=== PATIENT | male | born 1990 | race Caucasian/White ===

== ENCOUNTER → 2019-11-16 09:45 | Outpatient (CLI) | payer OTHER, SELFPAY ==
--- NOTE | ~2019-11-16 | MR_ITS ---
EXAMINATION: MR knee LT wo con DATE: 11/16/2019 10:30 INDICATION: Medial left knee pain TECHNIQUE: Magnetic resonance imaging (MRI) of the left knee was performed without intravenous contra st. Sequences included coronal PD-weighted FSE, coronal PD-weighted FS FSE, sagittal T2-weighted FSE , sagittal PD-weighted FS FSE and axial PD weighted fat saturated FSE. COMPARISON: None. FINDINGS: Medial compartment: Medial meniscus is normal. Articular cartilage is normal. Lateral compartment: Lateral meniscus is normal. Articular cartilage is normal. Patellofemoral compartment: Small focus of chondral fissuring with subtle underlying cortical irregularity at the junction of the inferior aspect of the medial trochlea and the anteriormost articular surface of the medial femoral condyle. Remaining cartilage in the patellofemoral compartment is normal. Ligaments and tendons: Anterior and posterior cruciate ligaments are normal. The medial collateral ligament and fibular hamilton ateral ligament complex are normal. The extensor mechanism is normal. The visualized medial and later al hamstring tendons as well as the iliotibial band are normal. Fluid: Physiologic amount of fluid in the joint space. No loose osteochondral bodies identified. Osseous/other: Normal marrow signal. No fracture or pathologic marrow replacing process. IMPRESSION: 1. Small focus of high-grade patellofemoral chondromalacia at the inferior aspect of the medial troch canelo. Reviewed, dictated and finalized at location A. IMPRESSION: 1. Small focus of high-grade patellofemoral chondromalacia at the inferior aspe ct of the medial trochlea.
== END ==
PROVIDERS: PCP Family Medicine; Visit Provider Internal Medicine
DX: M25.562 Pain in left knee (principal); M94.262 Chondromalacia, left knee
CPT/HCPCS: 73721

== ENCOUNTER 2023-09-11 08:57 | Outpatient (CLI) | payer OTHER, SELFPAY ==
--- NOTE | 2023-09-30 15:47 | WPDHOMESLEEP ---
Sleep Study - Home Unattended Date of Study: 09/11/23 Ordering Provider: Bari Zelaya MD Interpreting Provider: Georgia Bacon, DO Home Sleep Study Type: Watch PAT Height: 1.75 m Weight: 94.801 kg Body Mass Index: 30.8 Neck Circumference (inches): 16 [place]: 8 Reason for Sleep Study Snoring, unrefreshing sleep Sleep History The patient is a 32-year-old male with seasonal allergies that had a sleep study ordered by his primary care physician for evaluation of sleep apnea. The patient denies awakening from sleep short of breath. He rarely awakens at night with heartburn, belching or cough. He frequently snores and is frequently loud enough that others complain. He occasionally has trouble sleeping when he has a cold. He denies waking up gasping for air throughout the night. He denies having breathing problems at night observed by himself or others. He denies sweating excessively at night. He rarely has heart palpitations or irregular heartbeats during the night. He occasionally falls asleep during the day but never while driving. He denies cataplexy. He denies having trouble at school or work due to sleepiness. He rarely feels unable to move waking up or falling asleep. He rarely experiences vivid dreamlike scenes upon awakening or falling asleep. He denies feeling afraid of going to sleep. He denies having nightmares. He rarely remembers his dreams. He frequently has thoughts racing through his mind. He rarely feels sad or depressed. He occasionally has anxiety. He denies having muscular tension. He rarely notices parts of his body jerk. He denies kicking during the night. He denies having crawling and aching feelings in his legs and denies having leg pain during the night. He rarely grinds his teeth during sleep and never awakens with morning jaw pain. He is rarely bothered by pain during the day and never awakened by pain during the night. He occasionally wakes up feeling stiff morning. He denies waking up with sore or achy muscles. He frequently wakes up with pain in the neck, spine and other joints. He goes to bed at 10:30 p.m. on weekdays and 11:00 p.m. weekends. It takes him 5 minutes to fall asleep. He wakes up once throughout the night to urinate and is able to fall back asleep within 5 minutes. He wakes up at 6:00 a.m. on weekdays and at 6:30 a.m. on weekends. He typically gets 7 hours of sleep per night. He will stay in bed for 15 minutes after waking up in morning. He currently lives his and 2 children. He denies consuming caffeinated beverages within 2 hours of bedtime. He denies engaging physical exercise before bedtime. He will read and watch television before falling asleep. He denies taking naps in afternoon the evening. Sleep He consumes 1 caffeinated beverage per day. He consumes 1 alcoholic beverage per week. He denies tobacco and recreational drug use. [facility] Past Medical History Medical History Allergies Surgical History Surgical History H/O Achilles tendon repair H/O hernia repair Family History Family History Father Thyroid disorder Mother Asthma Sibling Depression Grandparent Hypertension Leukemia Social History Social History Smoking status: Never smoker Second hand tobacco smoke exposure: No Alcohol intake: current Alcohol use details: 1-2 monthly Substance use: never Do You Feel Safe in your Home?: Yes Lack of Transportation: No Lack of Food: Never True Current Housing: I Have Housing Concerned About Future Housing: No Difficulty Paying Gas/Electric Bills: No Difficulty Paying for Meds: No Currently Unemployed: No Education: Bachelor's Degree Difficulty w/ Childcare or Family Care: No Med
[2023-09-30 15:57] VITALS: BMI 30.8
== END 2023-09-12 10:35 | disposition home or self-care (01) ==
LOC: ANHCSM 09:13
PROVIDERS: PCP Emergency Medicine; Visit Provider Emergency Medicine
DX: G47.33 Obstructive sleep apnea (adult) (pediatric) (principal)
CPT/HCPCS: 95800